=== PATIENT | male | born 1990 | race Hispanic/Latino ===

== ENCOUNTER 2021-02-11 13:47 | Emergency (ER) | payer SELFPAY ==
[~2021-02-11] VITALS: Ht 175.3 cm; Wt 79.4 kg
[2021-02-11] MEDS ORDERED: LIDOCAINE HCL 1% LOCAL INJ 20 ML VIAL INJ NR (14:00)
[2021-02-11] MEDS ORDERED: Cefazolin 1 GM in SODIUM CHLORIDE 0.9% 50ML 50 ML IM ONE (14:00)
[2021-02-11] MEDS ORDERED: TETANUS/DIPHTHERIA TOX ADULT 0.5 ML SYR IM ONE (14:00)
[2021-02-11] MEDS ORDERED: BUPIVACAINE HCL 0.5% 10ML MPF VIAL INJ NR (14:00)
[2021-02-11] MEDS ORDERED: KEFLEX125 MG/5 M PO (16:34)
[2021-02-11] MEDS ORDERED: IBUPROFEN800 MG PO (16:34)
== END 2021-02-11 17:12 | disposition home or self-care (01) ==
LOC: ER 13:54
DX: S62.521B Displaced fracture of distal phalanx of right thumb, initial encounter for open fracture (principal); W27.0XXA Contact with workbench tool, initial encounter; Z88.0 Allergy status to penicillin; Z23 Encounter for immunization
CPT/HCPCS: 11760; 73140; 90471; 90714; 99284; J0690; J2001